=== PATIENT | female | born 1990 | race Caucasian/White ===

== ENCOUNTER 2020-09-10 18:47 | Emergency (ER) | payer MEDICAID, SELFPAY ==
[2020-09-10 20:07] VITALS: BP 125/62; PULSE 91; RESP 18; TEMP 37.7; TEMP 37.8; O2SAT 100; BMI 25.7
--- NOTE | 2020-09-10 20:19 | ED.GENADULT ---
HPI - General Adult General Chief complaint: General Medical Stated complaint: covid symptoms Time Seen by Provider: 09/10/20 20:04 Source: patient Mode of arrival: ambulatory Limitations: no limitations History of Present Illness HPI narrative: 30-year-old female with no significant past medical history presents with sore throat, swollen tonsils, intermittent fevers, and malaise. She does work as a nurse at [employer]. She did not report any chest pain or pressure, cough, palpitations, shortness of breath, abdominal pain, abdominal distention, nausea, vomiting, dysuria, hematuria, or edema. Onset (ago): day(s) (Several) Severity: moderate Severity scale (1-10): 6 Pain Consistency: constant Relieving factors: none Exacerbating factors: eating Associated symptoms: fever/chills, loss of appetite and malaise Treatments prior to arrival: NSAID Related Data Previous Rx's Medication Instructions Recorded amoxicillin-pot clavulanate 1 tab PO Q12H 10 Days #20 tab 09/10/20 [Augmentin] Allergies Allergy/AdvReac Type Severity Reaction Status Date / Time No Known Allergies Allergy Verified 09/10/20 20:36 Review of Systems Review of Systems: Constitutional: positive Fever, positive Chills, positive fatigue, positive Malaise ENT/Mouth: positive sore throat, positive runny nose Eyes: No Discharge Cardiovascular: No Chest Pain, No SOB Respiratory: No Cough, No Sputum, No Wheezing, No Smoke Exposure, No Dyspnea Gastrointestinal: No Nausea, No Vomiting, No Diarrhea Genitourinary: no irregular bleeding, No Dysuria, No Urinary Frequency, No Hematuria, No Urinary Incontinence, No Urgency, No Flank Pain, Musculoskeletal: positive Myalgia Skin: No rash Neuro: No Headache Yes all other systems are reviewed and are negative [facility] Past Medical History Attestation statement: The following information was validated with the patient. Social History Social History Advance Directives: No Advance Directives Information Provided: No Physical Exam Vital Signs: Vital Signs: Last Vital Signs Temp 100 F 09/10/20 20:07 Pulse 91 09/10/20 20:07 Resp 18 09/10/20 20:07 BP 125/62 09/10/20 20:07 Pulse Ox 100 09/10/20 20:07 Body Mass Index 25.7 Appearance: Alert. Oriented X3. Moderate distress. Eyes: Pupils equal, round and reactive to light. EOMI, sclera nonicteric ENT: Moderate tonsillar swelling with bilateral exudates and erythema, no cervical lymphadenopathy, Centor scale 3 Neck: Normal inspection. Neck supple. CVS: Normal heart rate and rhythm. Pulses normal. Respiratory: No respiratory distress. Breath sounds normal. Abdomen: Soft and nontender. Skin: Skin warm and dry. Normal skin color. Normal skin turgor. Extremities: No lower extremity edema. Neuro: No motor deficit. No sensory deficit. Course Course Course Narrative: 30-year-old female with upper respiratory symptoms, bilateral tonsillar swelling with exudates and erythema consistent with possible strep pharyngitis. will test for COVID-19 and strep, will treat for strep pharyngitis. COVID test is negative, strep is pending. Based on her presentation and Centor scale of 3 we will give antibiotics. Patient verbalized understanding of and agrees to plan of care discharge home. Medical Decision Making Differential Diagnosis Differential Diagnosis: Pharyngitis, COVID-19, influenza, viral syndrome Medical Records Medical records reviewed: Yes I reviewed the patient's medical records. Lab Data Lab results reviewed: Yes I reviewed the patient's lab results. Labs: Lab Results 09/10/20 Range/Units 20:10 COVID-19 ([facility]) Negative (Negative) COVID-19 Clin Com See Note Discharge Plan Discharge Clinical Impression: COVID-19, Strep pharyngitis Patient Disposition: Home, Self-Care Instructions: Strep Throat (ED) Additional Instructions: You were evaluated for upper respiratory symptoms and a sore throat. Your pharyngeal exam is consistent with strep pharyngitis. Please take Augmentin twice a day for the next 10 days as directed. You may use Tylenol and Motrin as needed for pain management. Thank you for choosing this emergency department for evaluation. Please follow-up with primary care physician as needed. Return to the emergency department for any new, concerning, or worsening symptoms. Prescriptions: New amoxicillin-pot clavulanate [Augmentin] 875-125 mg tablet 1 tab PO Q12H 10 Days Qty: 20 RF: 0 Stand Alone Forms: Work/School Release Interventions: ED Discharge Assessment Last Done: 09/10/20 21:20 Discharge Date/Time: 09/10/20 21:20
[2020-09-10] MEDS: Amoxicillin/Potassium Clav 875 MG TABLET PO (20:54)
--- NOTE | 2020-09-10 20:54 | PC.NURSE ---
TONSILS NOTED TO BE SWOLLEN WITH WHITE SPOTS, REPORTS SORE THROAT. ?STREP THROAT. STREP SWAB OBTAINED AND SENT TO LAB FOR ANALYSIS. WILL CALL WITH RESULTS.
[2020-09-10 21:07] LABS: COVID-19 Test Negative (Negative)
== END 2020-09-10 21:20 | disposition home or self-care (01) ==
PROVIDERS: Emergency Provider Emergency Medicine
DX: J02.0 Streptococcal pharyngitis (principal); Z20.822 Contact with and (suspected) exposure to COVID-19
CPT/HCPCS: 36415; 87071; 87147; 87635; 87880; 99283